=== PATIENT | male | born 2000 | race Caucasian/White ===

== ENCOUNTER 2021-03-28 19:11 | Emergency (ER) | payer OTHER, MEDICAID, SELFPAY ==
[2021-03-28 19:32] VITALS: BP 148/79; PULSE 98; RESP 24; TEMP 37.2; O2SAT 99; BMI 19.9
--- NOTE | 2021-03-28 19:37 | DI.RAD.S_ITS ---
PROCEDURE: XR CHEST 1V INDICATIONS: chest pain TECHNIQUE: One view of the chest was acquired. COMPARISON: None. FINDINGS: Surgical changes and devices: None. Lungs and pleura: Lungs are clear. No pleural effusions or pneumothorax. Mediastinum: Mediastinal contours appear normal. Heart size is normal. Bones and chest wall: No suspicious bony lesions. Overlying soft tissues appear unremarkable. IMPRESSION: No evidence acute pulmonary process. Dictated by: Kevin Snowden M.D. on 03/28/2021 at 20:04 Approved by: Kevin Snowden M.D. on 03/28/2021 at 20:05
[2021-03-28 19:56] LABS: Add Manual Diff / Slide Review NO; Basophils Absolute Auto 0 /uL (0-100); Basophils Percent Auto 0.3 % (0-2); Eosinophils Absolute Auto 200 /uL (0-450); Eosinophils Percent Auto 2.9 % (2-4); Hematocrit 42.6 % (41-53); Hemoglobin 14.4 g/dL (13.5-17.5); Lymphocytes Absolute Auto 2100 /uL (1100-4500); Lymphocytes Percent Auto 33.4 % (25-40); Mean Corpuscular HGB Conc 33.7 % (30-36); Mean Corpuscular Hemoglobin 30.2 PG (26-34); Mean Corpuscular Volume 89.6 fL (80-100); Monocytes Absolute Auto 700 /uL (0-900); Monocytes Percent Auto 10.5 % (3-14); Neutrophils Absolute Auto 3400 /uL (1500-7000); Neutrophils Percent Auto 52.9 % (50-75); Platelet Count 232 X10^3/uL (150-400); Red Blood Cell Count 4.76 X10^6/uL (4.5-5.9); Red Cell Distribution Width 12.7 % (11.6-14.8); White Blood Cell Count 6.4 X10^3/uL (4.5-11.0)
[2021-03-28 20:05] LABS: INR 1.2 (0.9-1.3); Prothrombin Time 13.1 SECONDS (10.1-12.7)
[2021-03-28 20:07] LABS: PTT Partial Thromboplastin Tim 35 SECONDS (26.4-36.2)
[2021-03-28 20:13] LABS: Alanine Aminotransferase 19 IU/L (<50); Albumin 4.5 g/dL (3.5-5.0); Albumin Globulin Ratio 1.8 (1.0-2.8); Alkaline Phosphatase 72 U/L (38-126); Aspartate Aminotransferase 27 IU/L (17-59); BUN Creatinine Ratio 18.5 (6-22); Bilirubin Total 0.5 mg/dL (0.2-1.3); Blood Urea Nitrogen 12 mg/dL (9-20); Calcium 9.4 mg/dL (8.4-10.2); Carbon Dioxide 33 mmol/L (22-32); Chloride 100 mmol/L (98-107); Creatine Kinase 175 U/L (55-170); Estimated Glomerular Filt Rate > 60.0 mL/min (>60); Globulin 2.5 g/dL (1.7-4.1); Glucose 94 mg/dL (70-100); HEMOLYSIS < 15 (0-50); Lipase 85 U/L (23-300); Potassium 3.5 mmol/L (3.4-5.1); Sodium 142 mmol/L (137-145)
[2021-03-28 20:24] LABS: Troponin I < 0.012 ng/mL (0.01-0.034)
[2021-03-28 20:28] LABS: CKMB % Relative Index 0.7 % (1.5-5.0); Creatine Kinase MB 1.16 ng/mL (<2.37)
[2021-03-28 21:00] VITALS: BP 123/70; PULSE 87; O2SAT 99
[2021-03-28 21:30] VITALS: BP 110/63; PULSE 63; O2SAT 99
--- NOTE | 2021-03-28 21:55 | ED.ARRPALP ---
HPI - Arrhythmia/Palpitations General Chief Complaint: Arrhythmia/Palpitations Stated Complaint: states needs heart checked out Time Seen by Provider: 03/28/21 21:54 Source: patient Mode of arrival: Ambulatory History of Present Illness HPI narrative: 20-year-old gentleman who presents to the emergency room complaining of heart palpitations, significant tachycardia where he was been entire days with his heart rate above 110 and sitting 134. He describes poor sleep, restlessness in his arms and his legs all in the setting of chronic insomnia. He notes that he can feel his heart rate increasing while he is laying in bed which makes him anxious which causes near panic attacks which in turn continues to elevate his heart rate. He develops chest tightness and becomes quite tearful and scared. Notes that in the past he has been on antidepressants but he felt that because he was still depressed they work working. 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 He has not yet been able schedule appointment with his primary care physician to discuss this. He notes that he does have significant anxiety and reports multiple energy drinks daily as well as multiple coffee drinks and soda. He drinks little water. He does not report any suicidal or homicidal ideations and is not reporting any auditory or visual hallucinations. Related Data Previous Rx's Medication Instructions Recorded fluoxetine 20 mg PO DAILY #30 cap 03/28/21 propranolol 10 mg PO BID #30 tab 03/28/21 Allergies Allergy/AdvReac Type Severity Reaction Status Date / Time No Known Drug Allergies Allergy Verified 03/28/21 19:37 Review of Systems Review of Systems Narrative: Remainder of complete review of systems is otherwise unremarkable except for that included in the HPI. Patient History Medical History Anxiety Depression Palpitations Sinus tachycardia Social History Smoking Status: Current every day smoker Smoking Status: Current every day smoker Substance Use Type: marijuana Exam Narrative Exam Narrative: General: Anxious, quite thin but in no acute distress. Able to give a complete but somewhat tangential history. HEENT: Moist mucous membranes, normal sclera with reactive pupils, Respiratory: Lungs are clear to auscultation, no wheezing no rales no rhonchi. Full and symmetrical air movement Cardiac: Sinus tachycardia but otherwise Regular rate and rhythm no murmurs no bruits Abdomen: Soft, nontender, good bowel tones, no flank pain Skin: Warm and dry, no rashes Neurologic: Grossly neurologically intact with no obvious asymmetries or abnormalities Extremities: No trauma, well perfused Psych: Cooperative, anxious, appropriate insight and affect with improved eye contact affect an interaction through the course of our discussion Initial Vital Signs Initial Vital Signs: Vital Signs Temperature 99 F 03/28/21 19:32 Pulse Rate 98 H 03/28/21 19:32 Respiratory Rate 24 03/28/21 19:32 Blood Pressure 148/79 H 03/28/21 19:32 Pulse Oximetry 99 03/28/21 19:32 Course Orders Ordered: ED Orders 03/28/21 19:37 XR chest 1V Stat EKG-12 Lead Stat 03/28/21 19:45 Complete Blood Count AUTO DIFF Stat Comprehensive Metabolic Panel Stat Lipase Stat Partial Thromboplastin Time Stat Prothrombin Time INR Stat Troponin & CK Cardiac Panel Stat Vital Signs Vital signs: Vital Signs - 8 hr 03/28/21 19:32 Temperature 99 F Pulse Rate 98 H Respiratory Rate 24 Blood Pressure 148/79 H Pulse Oximetry 99 MDM - Arrhythmia/Palpitations Medical Records Attestation: I reviewed the patient's medical records. Lab Data Attestation: I reviewed the patient's lab results. Result diagrams: 03/28/21 19:45 03/28/21 19:45 Labs: Lab Results 03/28/21 03/28/21 03/28/21 Range/Units 19:45 19:45 19:45 WBC 6.4 (4.5-11.0) X10^3/uL RBC 4.76 (4.5-5.9) X10^6/uL Hgb 14.4 (13.5-17.5) g/dL Hct 42.6 (41-53) % MCV 89.6 (80-100) fL MCH 30.2 (26-34) PG MCHC 33.7 (30-36) % RDW 12.7 (11.6-14.8) % Plt Count 232 (150-400) X10^3/uL Neut % (Auto) 52.9 (50-75) % Lymph % (Auto) 33.4 (25-40) % [place] % (Auto) 10.5 (3-14) % Eos % (Auto) 2.9 (2-4) % Baso % (Auto) 0.3 (0-2) % Neut # (Auto) 3400 (1536-1519) /uL Lymph # (Auto) 2100 (9767-2987) /uL [place] # (Auto) 700 (0-900) /uL Eos # (Auto) 200 (0-450) /uL Baso # (Auto) 0 (0-100) /uL PT 13.1 H (10.1-12.7) SECONDS INR 1.2 (0.9-1.3) APTT 35 (26.4-36.2) SECONDS Sodium 142 (137-145) mmol/L Potassium 3.5 (3.4-5.1) mmol/L Chloride 100 (98-107) mmol/L Carbon Dioxide 33 H (22-32) mmol/L BUN 12 (9-20) mg/dL Creatinine 0.65 L (0.66-1.25) mg/dL Estimated GFR > 60.0 (>60) mL/min BUN/Creatinine Ratio 18.5 (6-22) Glucose 94 (70-100) mg/dL Calcium 9.4 (8.4-10.2) mg/dL Total Bilirubin 0.5 (0.2-1.3) mg/dL AST 27 (17-59) IU/L ALT 19 (<50) IU/L Alkaline Phosphatase 72 (38-126) U/L Total Creatine Kinase 175 H (55-170) U/L CK-MB (CK-2) 1.16 (<2.37) ng/mL CK-MB (CK-2) Rel Index 0.7 L (1.5-5.0) % Troponin I < 0.012 (0.01-0.034) ng/mL Total Protein 7.0 (6.3-8.2) g/dL Albumin 4.5 (3.5-5.0) g/dL Globulin 2.5 (1.7-4.1) g/dL Albumin/Globulin Ratio 1.8 (1.0-2.8) Lipase 85 (23-300) U/L Imaging Data Chest x-ray: Radiologist's Impresson: FINDINGS: Surgical changes and devices: None. Lungs and pleura: Lungs are clear. No pleural effusions or pneumothorax. Mediastinum: Mediastinal contours appear normal. Heart size is normal. Bones and chest wall: No suspicious bony lesions. Overlying soft tissues appear unremarkable. IMPRESSION: No evidence acute pulmonary process. Dictated by: Kevin Snowden M.D. on 03/28/2021 at 20:04 ECG Data Interpretation: Sinus tachycardia at a rate of 109 Borderline LVH Rightward axis no acute ischemic changes MDM Narrative Medical decision making narrative: 20-year-old gentleman with increasing anxiety and sinus tachycardia. Poor diet choices with quite a bit of caffeine and energy stimulant drinks. He is willing to try to discontinue these to see if it will make a difference. Strongly recommended that he return to his antidepressants which he was more than willing to consider. Discussed the role of caffeine in increased anxiety and insomnia as well as anxiety is a common presenting complaint for overall depression. Physical exam is entirely reassuring and lab workup including EKG and chest x-ray is equally reassuring. Discussed using propranolol to help with his situational anxiety related tachycardia, Prozac is restarted at 20 mg a day and he will follow-up with his primary care physician. Questions are answered and he is safe for home discharge Discharge Plan Departure Patient Disposition: Home Clinical Impression: Palpitations, Anxiety, Sinus tachycardia Depression Qualifiers: Depression Type: unspecified Qualified Code(s): F32.9 - Major depressive disorder, single episode, unspecified Instructions: DI for Depression -- Adult, DI for Anxiety -- Adult Activity Restrictions/Additional Instructions: Thank you for coming in today Your medical evaluation is very reassuring and your heart is healthy. There are likely a number of things contributing to the rapid heart rate and the anxiety. I would strongly recommend cutting out all coffee drinks and energy drinks. A single coffee drink 1st thing in the morning is okay. Getting rid of soda and replacing all of that with simply water will likely make a nice difference. I am going to give you a prescription for propranolol. This is a medication that directly slows down your heart rate and can be helpful with anxiety. You can take it up to 2 times a day as needed if your heart rate is going too fast You mentioned that you felt that you are doing better when you are on an antidepressant. I am going to have you restart fluoxetine at 20 mg a day and please schedule an appointment with your primary care physician for follow-up on this and continued prescription refills If you feel that you are getting worse, please feel free to return to the emergency department Prescriptions: New propranolol 10 mg tablet 10 mg PO BID Qty: 30 RF: 0 fluoxetine 20 mg capsule 20 mg PO DAILY Qty: 30 RF: 0
== END 2021-03-28 22:50 | disposition home or self-care (01) ==
PROVIDERS: Emergency Provider Emergency Medicine
DX: R00.2 Palpitations (principal); R00.0 Tachycardia, unspecified; F41.9 Anxiety disorder, unspecified; F32.9 Major depressive disorder, single episode, unspecified
CPT/HCPCS: 36415; 71045; 80053; 82550; 82553; 83690; 84484; 85025; 85610; 85730; 93005; 93010; 99283; 99284

== ENCOUNTER 2021-04-10 19:52 | Emergency (ER) | payer OTHER, MEDICAID, SELFPAY ==
[2021-04-10 19:59] VITALS: BP 169/82; PULSE 100; RESP 18; TEMP 37.1; O2SAT 98; BMI 18.1
--- NOTE | 2021-04-11 00:42 | ED.ARRPALP ---
HPI - Arrhythmia/Palpitations General Chief Complaint: Arrhythmia/Palpitations Stated Complaint: HIGH HEART RATE Time Seen by Provider: 04/10/21 23:45 Source: patient Mode of arrival: Ambulatory Limitations: no limitations History of Present Illness HPI narrative: Patient is a 20-year-old male who presents with heart palpitations and anxiety is. He was seen evaluated here on 03/28/2021 for the same thing. He is homeless but staying with his brother is difficult time getting food as he has a lot of stressors in his life. He has some ongoing depression is. He feels like his heart is beating rapidly he sometimes has panic attacks and feels like his hands are clammy. He has been trying to lay in bed and go to sleep and feels his heart pounding. He denies any suicidal or homicidal ideations. He has quit drinking caffeine he only drinks water and tea which I have informed him actually does have caffeine in it. He no longer uses marijuana. He was previously on propranolol which he says is not really helping. He has had his problems ongoing but has really only developed anxiety and in the last couple of weeks. Related Data Previous Rx's Medication Instructions Recorded fluoxetine 20 mg PO DAILY #30 cap 03/28/21 propranolol 10 mg PO BID #30 tab 03/28/21 Allergies Allergy/AdvReac Type Severity Reaction Status Date / Time No Known Drug Allergies Allergy Verified 03/28/21 19:37 Review of Systems Review of Systems Narrative: GENERAL: Denies chills,fever HEENT: Denies throat pain RESPIRATORY: Denies dyspnea, cough, wheezing CARDIOVASCULAR: Denies chest pain, palpitations GASTROINTESTINAL: Denies nausea, vomiting MUSCULOSKELETAL: Denies extremity pain, injury SKIN: No rash, no laceration, no pruritus NEUROLOGIC: Denies weakness, dizziness, headache, numbness PSYCH: Anxiety depression see HPI 8 point review of systems is negative except for those stated above and HPI Patient History Medical History Anxiety Depression Palpitations Sinus tachycardia Social History Smoking Status: Current every day smoker Smoking Status: Current every day smoker tobacco type: cigarettes alcohol intake frequency: 0-2 drinks per day Substance Use Type: marijuana Exam Initial Vital Signs Initial Vital Signs: Vital Signs Temperature 98.7 F 04/10/21 19:59 Pulse Rate 100 H 04/10/21 19:59 Respiratory Rate 18 04/10/21 19:59 Blood Pressure 169/82 H 04/10/21 19:59 Pulse Oximetry 98 04/10/21 19:59 GENERAL: Young thin 20-year-old male and in no acute distress. HEENT: Head atraumatic,EOMI, pupils reactive, face symmetric, moist mucous membranes CARDIOVASCULAR: Regular rate and rhythm without murmurs, rubs or gallops. RESPIRATORY: Breath sounds equal bilaterally, no wheezes rales or rhonchi. ABDOMEN: Soft, nontender. Normoactive bowel sounds all 4 quadrants. No guarding or rebound. EXTREMITIES: Normal range of motion, no clubbing or edema. Neurovascularly intact NEUROLOGICAL: Alert and oriented x4.Normal gait and speech. SKIN: Warm, dry, no laceration, no petechiae, no rashes or lesions. Course Orders Ordered: ED Orders 04/10/21 20:12 EKG-12 Lead Stat Vital Signs Vital signs: Vital Signs - 8 hr 04/10/21 19:59 Temperature 98.7 F Pulse Rate 100 H Respiratory Rate 18 Blood Pressure 169/82 H Pulse Oximetry 98 MDM - Arrhythmia/Palpitations ECG Data Attestation: I personally reviewed and interpreted this ECG as follows: Prior ECG tracings: available for review Interpretation: Normal sinus rhythm rate 67 p.r. interval [address] changes no T-wave inversions MDM Narrative Medical decision making narrative: Patient is complaining of heart pounding not actual pain. I do not think this is pericarditis patient certainly has a lot of social stressors that can cause anxiety. We discussed other ways on how to manage anxiety or including meditation. I have also encouraged him to get therapy and counseling. He does have a primary care provider who I have told him he needs to follow up for long-term anxiety medication. He states that propranolol is really not helping him so I recommend that he stop taking it but I would like him to continue his Prozac. Discharge Plan Departure Patient Disposition: Home Clinical Impression: Palpitations Instructions: DI for Palpitations Activity Restrictions/Additional Instructions: *You have been diagnosed with palpitations, anxiety *What to do: At this time I think you are doing a great job. Please see a primary care provider you may need a Holter monitor and your thyroid checked. I recommend trying some meditation or yoga as well. *Continue to take medications as directed Stop taking propranolol Please continue antidepressant *Follow up with your primary care provider in 2-3 days *Return to ER if you should have anxiety, dizziness, passing out or any new, worsening or concerning symptoms Prescriptions: No Action propranolol 10 mg tablet 10 mg PO BID Qty: 30 RF: 0 fluoxetine 20 mg capsule 20 mg PO DAILY Qty: 30 RF: 0 Referrals: [facility] [Outside]
[2021-04-11 00:49] VITALS: BP 136/80; PULSE 99; RESP 16; O2SAT 97
== END 2021-04-11 00:49 | disposition home or self-care (01) ==
PROVIDERS: Emergency Provider Emergency Medicine
DX: R00.2 Palpitations (principal)
CPT/HCPCS: 93005; 99282; 99283

== ENCOUNTER 2022-10-12 16:40 | Emergency (ER) | payer OTHER, MEDICAID, SELFPAY ==
[2022-10-12 16:46] VITALS: BP 130/59; PULSE 102; RESP 18; TEMP 37.1; O2SAT 97; BMI 18.7
--- NOTE | 2022-10-12 17:23 | DI.CT.S_ITS ---
PROCEDURE: CT FACIAL BONES W CON INDICATIONS: ? kenroy orbital edema/ cellulitis, TECHNIQUE: After the administration of intravenous contrast, 2.5 mm axial sections acquired from the mid-neck to the frontal sinuses, with coronal and sagittal reformats. For radiation dose reduction, the following was used: automated exposure control, adjustment of mA and/or kV according to patient size. COMPARISON: None. FINDINGS: Image quality: Excellent. Soft tissues: Nonspecific soft tissue edema is seen in the subcutaneous tissues at the right face just inferior to the orbit. No intraorbital edema is seen. No fluid collection or abscess. No enlarged lymph nodes. Vascular: Visualized vascular structures appear patent throughout. Bony vascular foramina and canals appear normal. Bones: Facial bones appear intact, without fractures, erosions, or destruction. Visualized portions of the skull base and auditory canals also appear normal. Postsurgical changes in the cervical spine are partially imaged. Dental disease is noted. Sinuses: Paranasal sinuses are aerated without fluid levels, mucosal thickening, or mucoceles. Mastoid air cells are aerated. IMPRESSION: Nonspecific soft tissue edema in the right periorbital region. No intraorbital edema. No focal fluid collection or abscess. Approved by: Kirt Waters M.D. on 10/12/2022 at 20:04
[2022-10-12 17:33] LABS: Add Manual Diff / Slide Review NO; Basophils Absolute Auto 0 /uL (0-100); Basophils Percent Auto 0.3 % (0-2); Eosinophils Absolute Auto 0 /uL (0-450); Eosinophils Percent Auto 0.1 % (2-4); Hematocrit 39.7 % (41-53); Hemoglobin 13.7 g/dL (13.5-17.5); Lymphocytes Absolute Auto 1300 /uL (1100-4500); Lymphocytes Percent Auto 11.2 % (25-40); Mean Corpuscular HGB Conc 34.6 % (30-36); Mean Corpuscular Hemoglobin 30.1 PG (26-34); Mean Corpuscular Volume 87.1 fL (80-100); Monocytes Absolute Auto 800 /uL (0-900); Monocytes Percent Auto 7.2 % (3-14); Neutrophils Absolute Auto 9100 /uL (1500-7000); Neutrophils Percent Auto 81.2 % (50-75); Platelet Count 246 X10^3/uL (150-400); Red Blood Cell Count 4.56 X10^6/uL (4.5-5.9); Red Cell Distribution Width 13.1 % (11.6-14.8); White Blood Cell Count 11.2 X10^3/uL (4.5-11.0)
[2022-10-12 17:38] LABS: INR 1.4 (0.9-1.3); Lactate (Lactic Acid) 2.8 mmol/L (0.7-2.1); Prothrombin Time 16.3 SECONDS (10.1-12.7)
[2022-10-12 17:39] LABS: Alanine Aminotransferase 22 IU/L (<50); Albumin 4.3 g/dL (3.5-5.0); Albumin Globulin Ratio 1.3 (1.0-2.8); Alkaline Phosphatase 104 U/L (38-126); Aspartate Aminotransferase 32 IU/L (17-59); BUN Creatinine Ratio 21.8 (6-22); Bilirubin Total 0.7 mg/dL (0.2-1.3); Blood Urea Nitrogen 12 mg/dL (9-20); Calcium 9.2 mg/dL (8.4-10.2); Carbon Dioxide 26 mmol/L (22-32); Chloride 95 mmol/L (98-107); Estimated Glomerular Filt Rate > 60 mL/min (>60); Globulin 3.3 g/dL (1.7-4.1); Glucose 169 mg/dL (70-100); HEMOLYSIS < 15 (0-50); Lipase 77 U/L (23-300); Potassium 3.5 mmol/L (3.4-5.1); Sodium 133 mmol/L (137-145); Total Protein 7.6 g/dL (6.3-8.2)
[2022-10-12 17:40] LABS: PTT Partial Thromboplastin Tim 27 SECONDS (26-36)
[2022-10-12 17:56] LABS: Procalcitonin 0.13 ng/mL (<0.5)
--- NOTE | 2022-10-12 19:12 | ED_ITS ---
HPI - Skin/Abscess/Foreign Bdy General Chief complaint: Skin/Abscess/Foreign Body Stated complaint: Facial swelling Time Seen by Provider: 10/12/22 19:10 Source: patient Mode of arrival: Ambulatory Limitations: no limitations History of Present Illness HPI narrative: Patient is a 21-year-old male history of fentanyl abuse he smokes regularly presenting today with facial redness and swelling. Mostly over the bridge of nose beginning to go up into the orbital area and forehead. No eye pain no difficulty seeing feels like his nose is congested. He denies any dental pain. He does not use IV drugs. He has no difficulty breathing or speaking. Never happened before. Related Data Previous Rx's Medication Instructions Recorded fluoxetine 20 mg capsule 20 mg PO DAILY #30 caps 03/28/21 propranolol 10 mg tablet 10 mg PO BID #30 tabs 03/28/21 amoxicillin 875 mg-potassium 1 tab PO BID #14 tabs 10/12/22 clavulanate 125 mg tablet sulfamethoxazole 800 1 tab PO BID 7 days #14 tabs 10/12/22 mg-trimethoprim 160 mg tablet (Bactrim DS) Allergies Allergy/AdvReac Type Severity Reaction Status Date / Time No Known Drug Allergies Allergy Verified 03/28/21 19:37 Review of Systems Review of Systems Narrative: GENERAL: Denies chills,fever HEENT: Denies throat pain RESPIRATORY: Denies dyspnea, cough, wheezing CARDIOVASCULAR: Denies chest pain, palpitations GASTROINTESTINAL: Denies nausea, vomiting MUSCULOSKELETAL: Denies extremity pain, injury SKIN: See HPI NEUROLOGIC: Denies weakness, dizziness, headache, numbness 8 point review of systems is negative except for those stated above and HPI Patient History Medical History Anxiety Depression Palpitations Sinus tachycardia Social History Smoking Status: Current every day smoker Smoking Status: Current every day smoker tobacco type: cigarettes alcohol intake frequency: 0-2 drinks per day Substance Use Type: marijuana, heroin, methamphetamine and other Exam Initial Vital Signs Initial Vital Signs: Vital Signs Temperature 98.7 F 10/12/22 16:46 Pulse Rate 102 H 10/12/22 16:46 Respiratory Rate 18 10/12/22 16:46 Blood Pressure 130/59 L 10/12/22 16:46 Pulse Oximetry 97 10/12/22 16:46 Oxygen Delivery Method 10/12/22 16:46 GENERAL: Alert thin 21-year-old male HEENT: Head atraumatic,EOMI, pupils reactive, face symmetric, moist mucous membranes CARDIOVASCULAR: Regular rate and rhythm without murmurs, rubs or gallops. RESPIRATORY: Breath sounds equal bilaterally, no wheezes rales or rhonchi. ABDOMEN: Soft, nontender. Normoactive bowel sounds all 4 quadrants. No guarding or rebound. EXTREMITIES: Normal range of motion, no clubbing or edema. Neurovascularly intact NEUROLOGICAL: Alert and oriented x4 SKIN: Facial erythema over bridge of nose mostly on the right side inferior orbital area does not go around full periorbital region Course Orders Ordered: ED Orders 10/12/22 19:16 Blood Culture Stat Discontinued Medications Sodium Chloride (Normal Saline 0.9%) 1,000 mls @ 1,000 mls/hr IV BOLUS ONE Stop: 10/12/22 18:21 Last Infusion: 10/12/22 20:31 Dose: 0 mls/hr Documented By: ЮЛИЯ Admin: 10/12/22 19:17 Dose: 1,000 mls/hr Documented By: ЮЛИЯ Ampicillin Sodium/Sulbactam (Sodium 3 gm/ Sodium Chloride) 100 mls @ 200 mls/hr IV NOW ONE Stop: 10/12/22 19:21 Last Infusion: 10/12/22 20:31 Dose: 0 mls/hr Documented By: ЮЛИЯ Admin: 10/12/22 19:41 Dose: 200 mls/hr Documented By: ЮЛИЯ Sodium Chloride (Normal Saline 0.9%) 1,000 mls @ 1,000 mls/hr IV BOLUS ONE Stop: 10/12/22 20:19 Last Admin: 10/12/22 20:30 Dose: Not Given Documented By: ЮЛИЯ Vancomycin HCl (Vancomycin) 750 mg in 150 mls @ 150 mls/hr IV NOW ONE Stop: 10/12/22 20:20 Last Admin: 10/12/22 20:30 Dose: Not Given Documented By: ЮЛИЯ Trimethoprim/Sulfamethoxazole (Trimeth/Sulfa 160/800 (Ds) Tablet) 1 tab PO NOW ONE Stop: 10/12/22 20:20 Last Admin: 10/12/22 20:32 Dose: 1 tab Documented By: TRACEY Vital Signs Vital signs: Vital Signs - 8 hr 10/12/22 16:46 Temperature 98.7 F Pulse Rate 102 H Respiratory Rate 18 Blood Pressure 130/59 L Pulse Oximetry 97 Oxygen Delivery Method Room Air MDM - Skin/Abscess/Foreign Bdy Lab Data Result diagrams: 10/12/22 17:00 10/12/22 17:00 Labs: Lab Results 10/12/22 10/12/22 10/12/22 Range/Units 17:00 17:00 17:00 WBC 11.2 H (4.5-11.0) X10^3/uL RBC 4.56 (4.5-5.9) X10^6/uL Hgb 13.7 (13.5-17.5) g/dL Hct 39.7 L (41-53) % MCV 87.1 (80-100) fL MCH 30.1 (26-34) PG MCHC 34.6 (30-36) % RDW 13.1 (11.6-14.8) % Plt Count 246 (150-400) X10^3/uL Neut % (Auto) 81.2 H (50-75) % Lymph % (Auto) 11.2 L (25-40) % [place] % (Auto) 7.2 (3-14) % Eos % (Auto) 0.1 L (2-4) % Baso % (Auto) 0.3 (0-2) % Neut # (Auto) 9100 H (9592-2885) /uL Lymph # (Auto) 1300 (9526-7131) /uL [place] # (Auto) 800 (0-900) /uL Eos # (Auto) 0 (0-450) /uL Baso # (Auto) 0 (0-100) /uL PT 16.3 H (10.1-12.7) SECONDS INR 1.4 H (0.9-1.3) APTT 27 (26-36) SECONDS Sodium 133 L (137-145) mmol/L Potassium 3.5 (3.4-5.1) mmol/L Chloride 95 L (98-107) mmol/L Carbon Dioxide 26 (22-32) mmol/L BUN 12 (9-20) mg/dL Creatinine 0.55 L (0.66-1.25) mg/dL Estimated GFR > 60 (>60) mL/min BUN/Creatinine Ratio 21.8 (6-22) Glucose 169 H (70-100) mg/dL Lactate (0.7-2.1) mmol/L Calcium 9.2 (8.4-10.2) mg/dL Total Bilirubin 0.7 (0.2-1.3) mg/dL AST 32 (17-59) IU/L ALT 22 (<50) IU/L Alkaline Phosphatase 104 (38-126) U/L Total Protein 7.6 (6.3-8.2) g/dL Albumin 4.3 (3.5-5.0) g/dL Globulin 3.3 (1.7-4.1) g/dL Albumin/Globulin Ratio 1.3 (1.0-2.8) Lipase 77 (23-300) U/L Procalcitonin 0.13 (<0.5) ng/mL 10/12/22 Range/Units 17:00 WBC (4.5-11.0) X10^3/uL RBC (4.5-5.9) X10^6/uL Hgb (13.5-17.5) g/dL Hct (41-53) % MCV (80-100) fL MCH (26-34) PG MCHC (30-36) % RDW (11.6-14.8) % Plt Count (150-400) X10^3/uL Neut % (Auto) (50-75) % Lymph % (Auto) (25-40) % [place] % (Auto) (3-14) % Eos % (Auto) (2-4) % Baso % (Auto) (0-2) % Neut # (Auto) (4485-7829) /uL Lymph # (Auto) (4020-5692) /uL [place] # (Auto) (0-900) /uL Eos # (Auto) (0-450) /uL Baso # (Auto) (0-100) /uL PT (10.1-12.7) SECONDS INR (0.9-1.3) APTT (26-36) SECONDS Sodium (137-145) mmol/L Potassium (3.4-5.1) mmol/L Chloride (98-107) mmol/L Carbon Dioxide (22-32) mmol/L BUN (9-20) mg/dL Creatinine (0.66-1.25) mg/dL Estimated GFR (>60) mL/min BUN/Creatinine Ratio (6-22) Glucose (70-100) mg/dL Lactate 2.8 H (0.7-2.1) mmol/L Calcium (8.4-10.2) mg/dL Total Bilirubin (0.2-1.3) mg/dL AST (17-59) IU/L ALT (<50) IU/L Alkaline Phosphatase (38-126) U/L Total Protein (6.3-8.2) g/dL Albumin (3.5-5.0) g/dL Globulin (1.7-4.1) g/dL Albumin/Globulin Ratio (1.0-2.8) Lipase (23-300) U/L Procalcitonin (<0.5) ng/mL Imaging Data CT facial: Radiologist's Impression: CT Scan Report Signed Patient: Javier Segura MR#: [id number] : 2000 Acct:[id number] Age/Sex: 21 / M Date of Service: 10/12/22 Loc: ED Accession Number: [id number] ?? Procedure: CT facial bones w con Ordering Provider: Christopher Saenz MD PROCEDURE:? CT FACIAL BONES W CON ? INDICATIONS:? ? kenroy orbital edema/ cellulitis, ? TECHNIQUE:? After the administration of intravenous contrast, 2.5 mm axial sections acquired from the mid-neck to the frontal sinuses, with coronal and sagittal reformats.? For radiation dose reduction, the following was used:? automated exposure control, adjustment of mA and/or kV according to patient size.? ? COMPARISON:? None. ? FINDINGS:? Image quality:? Excellent.? ? Soft tissues:? Nonspecific soft tissue edema is seen in the subcutaneous tissues at the right face just inferior to the orbit.? No intraorbital edema is seen.? No fluid collection or abscess.? No enlarged lymph nodes.? ? Vascular:? Visualized vascular structures appear patent throughout.? Bony vascular foramina and canals appear normal.? ? Bones:? Facial bones appear intact, without fractures, erosions, or destruction.? Visualized portions of the skull base and auditory canals also appear normal.? Postsurgical changes in the cervical spine are partially imaged.? Dental disease is noted. ? Sinuses:? Paranasal sinuses are aerated without fluid levels, mucosal thickening, or mucoceles.? Mastoid air cells are aerated.? ? IMPRESSION:? Nonspecific soft tissue edema in the right periorbital region.? No intraorbital edema.? No focal fluid collection or abscess. ? ? ? Approved by: Kirt Waters M.D. on 10/12/2022 at 20:04? [facility] Narrative Medical decision making narrative: Patient has a mildly elevated lactate of 2.8 mildly cardiac of 102 of leukocytosis of 11.2 an obvious cellulitis on his face. No airway compromise. He is given IV fluids antibiotics in the ED. CT confirms probable cellulitis. At this time differential includes orbital cellulitis , preseptal cellulitis although I think unlikely at this time, he has absolutely no eye pain with movement does not involve the whole periorbital area only the inferior part. Patient overall is not septic obvious facial cellulitis. Given 1st dose of Unasyn, however he does not want to stay for the vancomycin. He is not septic, awake alert. Do not think orbital cellulitis or preseptal at this time he has minimal pain. Will put him on Augmentin and Bactrim. Discharge Plan Departure Patient Disposition: Home Clinical Impression: Cellulitis Instructions: DI for Cellulitis -- Adult Activity Restrictions/Additional Instructions: *You have been diagnosed with cellulitis *What to do: Try to stay elevated or help with the swelling, may keep some ice on the area that will also help. 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 *Continue to take medications as directed--> sent to [facility] Augmentin 875 twice a day for 7 days Bactrim 1 tablet twice a day for 7 days *Follow up with your primary care provider in 2-3 days or call [phone] *Return to ER if you should have increasing redness eye pain inability to open eye fever or any new, worsening or concerning symptoms Prescriptions: New sulfamethoxazole-trimethoprim [Bactrim DS] 800-160 mg tablet 1 tab PO BID 7 Days Qty: 14 0RF amoxicillin-pot clavulanate 875-125 mg tablet 1 tab PO BID Qty: 14 0RF No Action propranolol 10 mg tablet 10 mg PO BID Qty: 30 0RF fluoxetine 20 mg capsule 20 mg PO DAILY Qty: 30 0RF Visit Report Forms: Patient Portal/API
[2022-10-12] MEDS: SODIUM CHLORIDE 0.9% 1,000 ML 1000 ML IV (19:17)
[2022-10-12 19:28] LABS: Reflexed Lactate in 2 Hours Y
[2022-10-12] MEDS: AMPICILLIN/SULBACTAM 3 GM 3 GM in SODIUM CHLORIDE 0.9% 100 ML IV (19:41)
[2022-10-12] MEDS: TRIMETH/SULFA 160/800 (DS) TABLET 1 TAB PO (20:32)
== END 2022-10-12 20:36 | disposition home or self-care (01) ==
PROVIDERS: Emergency Medicine; Emergency Provider Emergency Medicine
DX: H05.011 Cellulitis of right orbit (principal)
CPT/HCPCS: 36415; 70487; 80053; 83605; 83690; 84145; 85025; 85610; 85730; 87040; 96365; 99284; J0295; Q9967